=== PATIENT | female | born 1985 | race Caucasian/White ===

== ENCOUNTER 2017-08-13 13:57 | Emergency (ER) | payer OTHER ==
[~2017-08-13] VITALS: Ht 160 cm; Wt 76.4 kg
[2017-08-13 13:57] VITALS: TEMP 36.7; O2SAT 99; Ht 160 cm; Wt 76.4 kg
[2017-08-13] MEDS ORDERED: ONDANSETRON INJ 2 MG/ML 2 ML VIAL ONE (14:05)
[2017-08-13] MEDS ORDERED: LIDOCAINE/EPINEPH/TETRACAINE 1 EA SYR EXT STA (14:14)
[2017-08-13] MEDS ORDERED: SODIUM CHLORIDE 0.9% 1000ML 1,000 ML IV ONE (14:14)
[2017-08-13] MEDS ORDERED: SODIUM CHLORIDE 0.9% 1000ML 1,000 ML IV STA (14:14)
--- NOTE | 2017-08-13 14:27 | EMERGENCY ROOM VISIT NOTE ---
History Report prepared by Tej: Kali Covarrubias Under the Supervision of: Dr. Jose Johnson M.D. First contact with patient: 14:03 Chief Complaint: SYNCOPE Stated Complaint: SYNCOPE History of Present Illness The patient is a 32 year old female who presents to the Emergency Room with complaints of syncope that occurred two and a half hours ago. This episode of syncope lasted about 30 seconds. At this time, the patient was sitting at her table waiting to eat breakfast when she became diaphoretic and pale. She noticed her eyes beginning to go black and all noise "went away." She tried to place her head on the table, but ended up losing consciousness, falling out of her chair, and hitting her face on the ground. She felt completely normal prior to the event, but had not eaten yet today. She denies any recent sickness as well. She has a past medical history of vasovagal syncope that has been happening intermittently since she was in high school. She denies any history of seizures. After her episode of syncope, she was generally weak and nauseated. She denies any chest pain, shortness of breath, vomiting, neck pain, abdominal pain, back pain, jaw pain, trouble speaking, trouble swallowing, trauma to her tongue, bowel/bladder incontinence, vaginal bleeding, vaginal discharge, melena, or hematochezia. She denies any chance of being . She denies any current medications. Her Tetanus immunization is up to date. She notes that she recently traveled to [place] at the end of June. She has a family history of thyroid dysfunction, but none herself. Source of History: patient Onset: 2 and a half hours ago Position: other (global) Symptom Intensity: 30 seconds Quality: other (Syncope) Timing: resolved Associated Symptoms: + nausea, + weakness (generalized), No neck pain, No chest pain, No vomiting, No abdominal pain, No back pain, No melena, No hematochezia, No urinary symptoms, No numbness Note: She has some trauma to her face. She denies any bowel/bladder incontinence or jaw pain. Review of Systems See HPI for pertinent positives & negatives. A total of 10 systems reviewed and were otherwise negative. Past Medical & Surgical Medical Problems: (1) Vasovagal syncope Old medical records were attempted to be reviewed but there are no old records at this hospital. Nurse's notes were reviewed and I agree with. She's had syncope in the past which is on worked up and deemed vasovagal according to the patient Family History FHx: thyroid disease Social History Smoking Status: Never Smoker Smokeless Tobacco Use: No Alcohol Use: occasionally Drug Use: none Marital Status: single Occupation Status: employed She works as a nurse at [employer] Current/Historical Medications Scheduled PRN Albuterol Hfa (Ventolin Hfa), 2-4 PUFFS INH Q6H PRN for SOB/Wheezing Allergies Coded Allergies: Prednisone (Unverified Allergy, Unknown, HIVES, 08/13/17) Physical Exam Vital Signs Date Time Temp Pulse Resp B/P (MAP) Pulse Ox O2 Delivery O2 Flow Rate FiO2 08/13/17 17:25 94 18 133/64 97 08/13/17 16:28 78 20 129/79 100 Room Air 08/13/17 15:38 82 18 128/72 98 Room Air 08/13/17 14:07 79 08/13/17 13:57 99 Room Air 08/13/17 13:57 36.7 86 20 129/79 99 Room Air Physical Exam General: Non-ill appearing young female, well developed well nourished in no acute distress, breathing comfortably on room air. Normal speech HEENT: Normal cephalic. There is a 2.5 cm laceration on her forehead and a small abrasion to the bridge of her nose. Pupils are equal round and reactive to light. Extraocular movements are intact. Oropharynx is pink with moist mucous membranes. No swelling of the mouth lips or tongue. No dental trauma. Normal TM's bilaterally. Neck: Supple with a midline trachea. No meningeal signs or stiffness, no JVD or bruits. No Stridor. Chest: Clear to auscultation bilaterally. No wheezes or rhonchi. No increased work of breathing. Heart: regular rate and rhythm. Abdomen: Soft nontender, nondistended without rebound guarding or rigidity. Extremities: No cyanosis clubbing or edema. No calf tenderness or assymetry Spine/Back. Non tender to palpation. No CVA tenderness Skin: Good turgor without rashes. Neurologic exam: Cranial nerves two through 12 are intact. Motor and sensation are intact and symmetrical throughout. Normal finger to nose. No tremor. GCS 15. Medical Decision & Procedures ER Provider Diagnostic Interpretation: Radiology results as stated below per my review and radiologist interpretation: CHEST X-RAY 1 VIEW: Per my interpretation reveals no pneumothorax, failure, or infiltrate. CT HEAD WITHOUT CONTRAST (CT) CLINICAL HISTORY: Syncope. Head trauma. COMPARISON STUDY: No previous studies for comparison. TECHNIQUE: Axial CT of the brain is performed from the vertex to the skull base. IV contrast was not administered for this examination. A dose lowering technique was utilized adhering to the principles of ALARA. CT DOSE: 537.48 mGy.cm FINDINGS: No intra or extra-axial mass lesions are visualized. There is no CT evidence of acute cortical infarction. There is no evidence of midline shift. There is no acute hemorrhage. No calvarial fractures are visualized. There are patchy white matter hypodensities likely on a small vessel basis. There is no evidence of pathologic ventricular dilatation. There is no evidence of acute sinusitis There is a small frontal scalp laceration. IMPRESSION: Small frontal scalp laceration. No acute intracranial findings. Electronically signed by: Miquel Chin M.D. 08/13/2017 3:08 PM Dictated Date/Time: 08/13/2017 3:07 PM Laboratory Results 08/13/17 14:42 Red Blood Count 4.80, Mean Corpuscular Volume 88.5, Mean Corpuscular Hemoglobin 30.8, Mean Corpuscular Hemoglobin Concent 34.8, Mean Platelet Volume 9.8, Neutrophils (%) (Auto) 87.7, Lymphocytes (%) (Auto) 7.5, Monocytes (%) (Auto) 3.9, Eosinophils (%) (Auto) 0.2, Basophils (%) (Auto) 0.2, Neutrophils # (Auto) 10.68, Lymphocytes # (Auto) 0.92, Monocytes # (Auto) 0.48, Eosinophils # (Auto) 0.03, Basophils # (Auto) 0.02 08/13/17 14:42 Test 08/13/17 14:42 08/13/17 14:49 White Blood Count 12.19 K/uL (4.8-10.8) Red Blood Count 4.80 M/uL (4.2-5.4) Hemoglobin 14.8 g/dL (12.0-16.0) Hematocrit 42.5 % (37-47) Mean Corpuscular Volume 88.5 fL (80-100) Mean Corpuscular Hemoglobin 30.8 pg (25-34) Mean Corpuscular Hemoglobin Concent 34.8 g/dl (32-36) Platelet Count 305 K/uL (130-400) Mean Platelet Volume 9.8 fL (7.4-10.4) Neutrophils (%) (Auto) 87.7 % Lymphocytes (%) (Auto) 7.5 % Monocytes (%) (Auto) 3.9 % Eosinophils (%) (Auto) 0.2 % Basophils (%) (Auto) 0.2 % Neutrophils # (Auto) 10.68 K/uL (1.4-6.5) Lymphocytes # (Auto) 0.92 K/uL (1.2-3.4) Monocytes # (Auto) 0.48 K/uL (0.11-0.59) Eosinophils # (Auto) 0.03 K/uL (0-0.5) Basophils # (Auto) 0.02 K/uL (0-0.2) RDW Standard Deviation 39.2 fL (36.4-46.3) RDW Coefficient of Variation 12.3 % (11.5-14.5) Immature Granulocyte % (Auto) 0.5 % Immature Granulocyte # (Auto) 0.06 K/uL (0.00-0.02) Anion Gap 4.0 mmol/L (3-11) Est Creatinine Clear Calc Drug Dose 87.2 ml/min Estimated GFR () 98.0 Estimated GFR (Non- 84.6 BUN/Creatinine Ratio 13.2 (10-20) Calcium Level 9.6 mg/dl (8.5-10.1) Total Bilirubin 0.6 mg/dl (0.2-1) Direct Bilirubin 0.1 mg/dl (0-0.2) Aspartate Amino Transf (AST/SGOT) 8 U/L (15-37) Alanine Aminotransferase (ALT/SGPT) 21 U/L (12-78) Alkaline Phosphatase 74 U/L (45-117) Total Protein 7.7 gm/dl (6.4-8.2) Albumin 4.2 gm/dl (3.4-5.0) Lipase 81 U/L (73-393) Thyroid Stimulating Hormone (TSH) 0.492 uIu/ml (0.300-4.500) Human Chorionic Gonadotropin, Qual NEG (NEG) Bedside Troponin I < 0.030 ng/ml (0-0.045) Laboratory studies as stated above per my review. Medications Administered Medications (Trade) Dose Ordered Sig/Michael Route Start Time Stop Time Status Last Admin Dose Admin Sodium Chloride 1,000 ml @ 999 mls/hr Q1H1M STAT IV 08/13/17 14:14 08/13/17 15:14 DC 08/13/17 14:23 999 MLS/HR Sodium Chloride 1,000 ml @ 200 mls/hr Q5H ONCE IV 08/13/17 14:14 08/13/17 19:13 DC 08/13/17 16:25 200 MLS/HR Tetracaine/ Epinephrine/ Lidocaine (L.e.t. Gel 4%/ 1:100/0.5%) 1 ea NOW STAT EXT 08/13/17 14:14 08/13/17 14:16 DC 08/13/17 14:22 1 EA Ondansetron HCl (Zofran Inj) 4 mg NOW STAT IV 08/13/17 15:51 08/13/17 15:52 DC 08/13/17 16:27 4 MG Ondansetron HCl (ZOFRAN ODT 4MG Home Pack) 1 homepack UD ONCE PO 08/13/17 17:00 08/13/17 17:01 DC 08/13/17 17:21 1 HOMEPACK Procedure Location: Forehead Total length: 2.5 cm Complexity: Simple Verbal consent was obtained after the risks and benefits were explained, including but not limited to bleeding, scarring, infection, pain, and bone/joint /nerve damage. At this time, the risks of the procedure are less than the risks of NOT performing the procedure. A time out was taken and the correct patient and site identified. The skin was prepped with betadine. The target area was anesthetized with LET gel. Copious irrigation was performed using normal saline. The skin was re-prepped with betadine and a sterile field set. The wound was explored for foreign bodies and none found. Examination revealed no injury to deep structures such as tendons, bone, or significant blood vessels. Debridement was not performed. The wound edges were approximated using 7, 6-0 simple interrupted nylon sutures. Hemostasis and excellent approximation was achieved. Antibacterial ointment and a sterile dressing applied. Detailed wound care instructions and signs and symptoms of infection reviewed with the patient. No complications and the patient tolerated the procedure well. ECG Indication: syncope Rate (beats per minute): 90 Rhythm: normal sinus Findings: no acute ischemic change, other (Nonspecific T-wave abnormality, sinus arrhythmia) Comparison ECG Date: no prior available ED Course 1403: Past medical records reviewed. The patient was evaluated in room C9, and a complete history and physical examination were performed. 1405: Ordered Zofran Inj 4 mg IV .ROUTE 1414: Ordered Tetracaine/ Epinephrine/ Lidocaine 1 ea EXT, Sodium Chloride 1000 ml @ 200 mls/hr IV, Sodium Chloride 1000 ml @ 999 mls/hr IV 1520: The patient is resting comfortably upon reexamination. 1551: Ordered Zofran Inj 4 mg IV 1610: I performed a laceration repair at this time. Please see the procedure note for further information. 1630: Upon reevaluation, the patient is resting. I discussed the results and treatment plan with her. She verbalized agreement of the treatment plan. The patient was discharged home. Medical Decision Differentials include, but are not limited to; syncope, arrhythmia, seizure, electrolyte or metabolic abnormality, traumatic injuries, or anemia. This patient comes in as described above. She was placed on a quality assurance monitor in room C9. She had a syncopal episode briefly this morning. She's had multiple vasovagal episodes in the past. She has had no chest pain or shortness of breath. She has normal neurologic exam . She did hit her head and has a headache and in light of this, I did order CAT scan of her head. She has a small laceration and let gel was applied. She is up-to-date on tetanus booster. EKG was obtained and shows nothing to suggest acute coronary syndrome or arrhythmia. She was hydrated with IV normal saline bolus. Multiple blood testing was obtained and she was reassessed frequently. She was feeling much better. I did repair her laceration as outlined above. CAT scan of her head was unremarkable she has normal neurologic exam she has nothing to suggest acute coronary syndrome. She's had no acute electrolyte or metabolic abnormalities. She's not anemic. She is not . He has has vasovagal episodes before and this most likely is what happened here. She feels good and would like to go home.. She is to have the sutures out in 5 days at a hospital near her or she could always return here. She should drink plenty fluids and rest avoid drinking alcohol. Return if: Worsening symptoms, chest pain, shortness of breath, fever or chills, any new problems or concerns. She was happy with plan and discharged to home. Head Trauma GCS Score: 15 Medication Reconcilliation Current Medication List: was personally reviewed by me Blood Pressure Screening Patient's blood pressure: Normal blood pressure Blood pressure disposition: Did not require urgent referral Impression Primary Impression: Syncope Additional Impressions: Concussion Facial laceration Scribe Attestation The scribe's documentation has been prepared under my direction and personally reviewed by me in its entirety. I confirm that the note above accurately reflects all work, treatment, procedures, and medical decision making performed by me. Departure Information Dispostion Home / Self-Care Referrals No Doctor, Assigned Forms HOME CARE DOCUMENTATION FORM, IMPORTANT VISIT INFORMATION Patient Instructions My [facility] Additional Instructions Rest. Drink plenty of fluids. Be careful getting up and down. Have the stitches taken out in 5 days here or at her hospital back home Return if: Worsening of symptoms, chest pain, shortness of breath, fever or chills, problems with a laceration. Follow-up with your doctor and get home this week Problem Qualifiers Primary Impression: Syncope
--- NOTE | 2017-08-13 14:36 | DIAGNOSTIC IMAGING REPORT ---
CHEST ONE VIEW PORTABLE CLINICAL HISTORY: Atypical chest pain COMPARISON STUDY: No previous studies for comparison. FINDINGS: The cardiac and mediastinal contours are normal. There is no evidence of focal pulmonary consolidation. There is no evidence of failure. No pleural effusions are visualized.[ IMPRESSION: No active disease in the chest. Electronically signed by: Miquel Chin M.D. 08/13/2017 2:34 PM Dictated Date/Time: 08/13/2017 2:34 PM
[2017-08-13 14:54] LABS: BASO % 0.2 %; BASO ABS # 0.02 K/uL (0-0.2); COMPLETE YES; EOS % 0.2 %; HEMATOCRIT 42.5 % (37-47); IG% 0.5 %; LYMPH % 7.5 %; LYMPH ABS # 0.92 K/uL (1.2-3.4); MEAN CELL VOLUME 88.5 fL (80-100); MEAN CORPUSCULAR HEMOGLOBIN 30.8 pg (25-34); MEAN CORPUSCULAR HGB CONC 34.8 g/dl (32-36); MEAN PLATELET VOLUME 9.8 fL (7.4-10.4); MONO % 3.9 %; NEUT % 87.7 %; PLATELET COUNT 305 K/uL (130-400); WHITE BLOOD COUNT 12.19 K/uL (4.8-10.8)
--- NOTE | 2017-08-13 15:09 | DIAGNOSTIC IMAGING REPORT ---
CT HEAD WITHOUT CONTRAST (CT) CLINICAL HISTORY: Syncope. Head trauma. COMPARISON STUDY: No previous studies for comparison. TECHNIQUE: Axial CT of the brain is performed from the vertex to the skull base. IV contrast was not administered for this examination. A dose lowering technique was utilized adhering to the principles of ALARA. CT DOSE: 537.48 mGy.cm FINDINGS: No intra or extra-axial mass lesions are visualized. There is no CT evidence of acute cortical infarction. There is no evidence of midline shift. There is no acute hemorrhage. No calvarial fractures are visualized. There are patchy white matter hypodensities likely on a small vessel basis. There is no evidence of pathologic ventricular dilatation. There is no evidence of acute sinusitis There is a small frontal scalp laceration. IMPRESSION: Small frontal scalp laceration. No acute intracranial findings. Electronically signed by: Miquel Chin M.D. 08/13/2017 3:08 PM Dictated Date/Time: 08/13/2017 3:07 PM
[2017-08-13 15:12] LABS: BUN/CREATININE RATIO 13.2 (10-20); CALCIUM 9.6 mg/dl (8.5-10.1); CREATININE 0.89 mg/dl (0.60-1.20)
[2017-08-13] MEDS ORDERED: VNTHFA/IN INH (15:15)
[2017-08-13 15:18] LABS: PREG INTERNAL NEGATIVE QC NEG CLEAR BACKGROUND; PREG INTERNAL POSITIVE QC POS CONTROL LINE
[2017-08-13 15:23] LABS: THYROID STIMULATING HORMONE 0.492 uIu/ml (0.300-4.500)
[2017-08-13] MEDS ORDERED: ONDANSETRON INJ 2 MG/ML 2 ML VIAL IV STA (15:51)
[2017-08-13] MEDS ORDERED: ONDANSETRON HOME PACK 4MG OD TAB PO ONE (17:00)
[2017-08-13 17:25] VITALS: BP 133/64; PULSE 94; O2SAT 97
== END 2017-08-13 17:37 | disposition home or self-care (01) ==
LOC: C.EDC 13:58
DX: R55 Syncope and collapse (principal); S06.0X9A Concussion with loss of consciousness of unspecified duration, initial encounter; S01.81XA Laceration without foreign body of other part of head, initial encounter; S00.31XA Abrasion of nose, initial encounter; W07.XXXA Fall from chair, initial encounter